=== PATIENT | male | born 1950 | race African-American/Black ===

== ENCOUNTER 2018-10-25 10:21 | Emergency (ER) | payer MEDICARE ==
[~2018-10-25] VITALS: Ht 180.3 cm; Wt 100.7 kg
--- OUTSIDE RECORDS SUMMARY | 2018-10-25 10:23 | XMS REPORT | Clinical Summary ---
Author Author GLORIA [facility] Organization [facility] Address Unknown Phone Unavailable Care Team Providers Care Potato Chip Sorter Name Role Phone PCP Unavailable Allergies No Known Allergies Medications Not on file Active Problems Not on file Social History Date Tobacco Use Types Packs/Day Years Used Never Assessed Sex Assigned at Date Recorded Not on file Industry Job Start Date Occupation Not on file Not on file Not on file Travel End Travel History Travel Start No recent travel history available. Last Filed Vital Signs Not on file Plan of Treatment Not on file Results Not on fileafter 10/24/2017 Insurance Payer Benefit Subscriber ID Type Phone Address Plan / Group MEDICARE MEDICARE A xxxxxxxxxx Medicare B [facility] H[facility]/POS CARE POS SELECT CHOICE
[2018-10-25] MEDS ORDERED: LEVOTHYROXINE50 MCG PO (10:43)
[2018-10-25] MEDS ORDERED: PRAVASTATIN SOD10 MG (10:43)
[2018-10-25] MEDS ORDERED: LOSARTAN POTASS25 MG (10:43)
[2018-10-25] MEDS ORDERED: TAMSULOSIN HCL0.4 MG (10:43)
[2018-10-25] MEDS ORDERED: KETOROLAC TROMETHAMINE 30 MG/ML VIAL IV STA (10:53)
--- NOTE | 2018-10-25 11:44 | Diagnostic Imaging Report ---
EXAMINATION: CT of the abdomen and pelvis without contrast. TECHNIQUE: Spiral CT images of the abdomen and pelvis were performed from the lung bases to the lesser trochanters. No intravenous contrast was given per renal stone protocol. Coronal and sagittal reformatted images were obtained. COMPARISON: None. CLINICAL HISTORY:Flank pain DISCUSSION: ABSENCE OF INTRAVENOUS CONTRAST DECREASES SENSITIVITY FOR DETECTION OF FOCAL LESIONS AND VASCULAR PATHOLOGY. ABDOMEN/PELVIS: LOWER THORAX: Unremarkable. HEPATOBILIARY:No focal hepatic lesions. No biliary ductal dilation. The gallbladder is normal. SPLEEN: No splenomegaly. PANCREAS: No focal masses or ductal dilatation. ADRENALS: No adrenal nodules. KIDNEYS/URETERS: Multiple bilateral renal hypoattenuating lesions, all of which measure less than 20 Hounsfield units in attenuation. Examples include a 1.6 cm lesion in the right lower pole seen on series 2 image 47, 4 cm in the left lower pole seen on image 42, and a 1.9 cm lesion in the left upper pole seen on image 32. Additional subcentimeter hypoattenuating lesions bilaterally which cannot be further characterized no renal calculi are appreciated. No hydronephrosis. No proximal ureteral calculi. The distal ureters cannot be assessed secondary to extensive beam hardening artifact from right hip prosthesis. PELVIC ORGANS/BLADDER: The urinary bladder is collapsed and poorly evaluated secondary to extensive beam hardening artifact from right hip prosthesis. Coarse prostatic calcifications. PERITONEUM/RETROPERITONEUM: Presence of free pelvic fluid cannot be ascertained. No pneumoperitoneum. LYMPH NODES: No pelvic sidewall, retroperitoneal, or mesenteric lymphadenopathy. VESSELS: There is atherosclerotic calcification of the abdominal aorta and major branch vessels without aneurysmal dilatation. Evaluation is otherwise limited in the absence of intravenous contrast. GI TRACT: The large bowel shows no evidence of distention or wall thickening. Gas and fecal material are noted throughout. The appendix is normal. The stomach is collapsed with prominence of the rugal folds. No small bowel dilatation to suggest obstruction. BONES AND SOFT TISSUES: Status post total right hip arthroplasty. Multilevel degenerative disc changes and facet arthropathy of the lumbar spine. Intraosseous hemangioma of the L2 vertebral body. Small fat-containing left inguinal hernia. Otherwise no focal soft tissue abnormalities. IMPRESSION: No hydronephrosis or renal/upper ureteral calculi. As above, the distal ureters and bladder cannot be adequately assessed secondary to extensive beam hardening artifact from right hip prosthetic hardware. Scattered bilateral hypoattenuating renal lesions likely represent cysts but are incompletely characterized in the absence of intravenous contrast. Atherosclerotic vascular disease. Signed by: Dr. Brent Zhao M.D. on 10/25/2018 11:41 AM
[2018-10-25 12:17] VITALS: BP 150/88
== END 2018-10-25 12:29 | disposition home or self-care (01) ==
LOC: FSED 10:21
DX: M54.5 Low back pain (principal); R10.9 Unspecified abdominal pain; I10 Essential (primary) hypertension; E78.5 Hyperlipidemia, unspecified; E03.9 Hypothyroidism, unspecified; Z96.641 Presence of right artificial hip joint
CPT/HCPCS: 74176; 80048; 80076; 81003; 85025; 99284; J1885